=== PATIENT | female | born 1985 | race Caucasian/White ===

== ENCOUNTER 2018-05-14 16:38 | Outpatient (CLI) | payer BC ==
--- NOTE | 2018-05-14 17:51 | RAD ---
SUPINE VIEW ABDOMEN: History: Abdominal pain. FINDINGS: AP abdomen is obtained and demonstrates a large amount of stool seen in the colon. Abdominal gas ronit west is nonspecific. No evidence of obstruction or ileus seen. No dilated loops of bowel seen. IMPRESSION: Unremarkable AP abdomen. POS: [facility]
== END 2018-05-14 16:39 | disposition home or self-care (01) ==
LOC: BICRAD 16:38
PROVIDERS: ATTEND Family Medicine
DX: R10.84 Generalized abdominal pain (principal)
CPT/HCPCS: 74018